=== PATIENT | male | born 1955 | race Two or more races ===

== ENCOUNTER 2017-11-28 16:13 | Inpatient (IN) | payer OTHER ==
[~2017-11-28] VITALS: Ht 180.3 cm; Wt 75.3 kg
[2017-11-29] MEDS ORDERED: PROTONIX20 MG PO (09:03)
== END 2017-12-03 12:05 | disposition home or self-care (01) | DRG 708 ==
LOC: O/R 11-30 06:15 → SURH 11-30 06:15 → CIR.AMB 11-30 06:15 → EDSTATUS 11-30 07:00 → CIR.AMB 11-30 07:00 → SURG 11-30 15:45 → SURH 11-30 15:45 → CIR.AMB 11-30 16:06 → SURH 12-03 12:05
PROVIDERS: Urology
PROC: 07TC0ZZ Resection of Pelvis Lymphatic, Open Approach (ICD-10-PCS; 2017-11-30)
PROC: 0VT00ZZ Resection of Prostate, Open Approach (ICD-10-PCS; principal; 2017-11-30 07:00)
DX: C61 Malignant neoplasm of prostate (principal)

== ENCOUNTER → 2017-12-20 12:13 | Outpatient (CLI) | payer OTHER ==
[~2017-12-20 12:13] MED LIST: PROTONIX20 MG PO
== END | disposition home or self-care (01) ==
LOC: LAB 12:13
DX: N30.00 Acute cystitis without hematuria (principal); R82.79 Other abnormal findings on microbiological examination of urine

== ENCOUNTER 2017-12-20 13:26 | Outpatient (CLI) | payer OTHER | END 2017-12-20 13:40 | disposition home or self-care (01) | LOC: SONOGRAMA 13:26 | DX: R31.29 Other microscopic hematuria (principal) ==

== ENCOUNTER 2018-03-08 10:47 | Outpatient (CLI) | payer OTHER | END 2018-03-08 10:50 | disposition home or self-care (01) | LOC: LAB 10:47 | DX: C61 Malignant neoplasm of prostate (principal); N30.00 Acute cystitis without hematuria ==

== ENCOUNTER 2018-07-19 09:59 | Outpatient (CLI) | payer OTHER ==
[~2018-07-19] VITALS: Ht 152.4 cm; Wt 74.8 kg
== END 2018-07-19 10:15 | disposition home or self-care (01) ==
LOC: OFIC 805 09:59
DX: H90.3 Sensorineural hearing loss, bilateral (principal); H61.23 Impacted cerumen, bilateral; H92.01 Otalgia, right ear; M46.82 Other specified inflammatory spondylopathies, cervical region

== ENCOUNTER 2019-03-06 06:42 | Day surgery (SDC) | payer OTHER ==
[~2019-03-06 06:42] MED LIST changes: +ASPIR 8181 MG PO
[2019-03-06] MEDS ORDERED: TYLENOL ARTHRI650 MG PO (10:55)
[2019-03-06] MEDS ORDERED: MIRALAX17 GM PO (10:55)
[2019-03-06] MEDS ORDERED: NEURONTIN300 MG PO (10:55)
[2019-03-06] MEDS ORDERED: ZOFRAN4 MG PO (10:55)
[2019-03-06] MEDS ORDERED: ULTRAM50 MG PO (10:55)
[2019-03-09] MEDS ORDERED: DUCOLAX (15:44)
== END 2019-03-06 15:35 | disposition home or self-care (01) ==
LOC: CIR.AMB 06:42
DX: K40.90 Unilateral inguinal hernia, without obstruction or gangrene, not specified as recurrent (principal); D17.6 Benign lipomatous neoplasm of spermatic cord

== ENCOUNTER → 2019-03-09 | Emergency (ER) | payer OTHER ==
[~2019-03-09] VITALS: Ht 180.3 cm; Wt 74.8 kg
[~2019-03-09] MED LIST changes: +DUCOLAX; +MIRALAX17 GM PO; +NEURONTIN300 MG PO; +TYLENOL ARTHRI650 MG PO; +ULTRAM50 MG PO; +ZOFRAN4 MG PO
== END | disposition home or self-care (01) ==
LOC: ER 14:49
DX: K29.70 Gastritis, unspecified, without bleeding (principal); R10.13 Epigastric pain

== ENCOUNTER 2019-03-17 11:24 | Emergency (ER) | payer OTHER ==
[~2019-03-17] VITALS: Ht 180.3 cm; Wt 76.7 kg
== END 2019-03-17 14:55 | disposition home or self-care (01) ==
LOC: ER 11:24
DX: R10.11 Right upper quadrant pain (principal)

== ENCOUNTER 2020-12-29 13:27 | Outpatient (CLI) | payer OTHER | END 2020-12-29 13:29 | disposition home or self-care (01) | LOC: SONOGRAMA 13:27 | PROVIDERS: ATTEND Internal Medicine Gastroenterology | DX: R10.84 Generalized abdominal pain (principal) ==

== ENCOUNTER 2020-12-29 15:43 | Outpatient (CLI) | payer OTHER | END 2020-12-29 15:46 | disposition home or self-care (01) | LOC: LAB 15:43 | PROVIDERS: ATTEND Internal Medicine Gastroenterology | DX: R62.59 Other lack of expected normal physiological development in childhood (principal); E03.8 Other specified hypothyroidism; R10.84 Generalized abdominal pain; E78.49 Other hyperlipidemia ==

== ENCOUNTER 2021-11-09 08:28 | Outpatient (CLI) | payer OTHER | END 2021-11-09 08:39 | disposition home or self-care (01) | LOC: LAB 08:28 | PROVIDERS: ATTEND Internal Medicine Cardiovascular Disease | DX: I10 Essential (primary) hypertension (principal); E11.9 Type 2 diabetes mellitus without complications; E03.9 Hypothyroidism, unspecified; E78.2 Mixed hyperlipidemia; N40.0 Benign prostatic hyperplasia without lower urinary tract symptoms; Z12.11 Encounter for screening for malignant neoplasm of colon; E55.9 Vitamin D deficiency, unspecified ==

== ENCOUNTER → 2021-11-10 11:42 | Outpatient (CLI) | payer OTHER | END | disposition home or self-care (01) | LOC: LAB 11:42 | PROVIDERS: ATTEND Internal Medicine Cardiovascular Disease | DX: Z12.11 Encounter for screening for malignant neoplasm of colon (principal) ==

== ENCOUNTER → 2022-07-27 09:05 | Outpatient (CLI) | payer OTHER | END | disposition home or self-care (01) | LOC: LAB 09:05 | PROVIDERS: ATTEND Urology | DX: C61 Malignant neoplasm of prostate (principal) ==

== ENCOUNTER 2024-09-25 12:42 | Outpatient (CLI) | payer OTHER | END 2024-09-25 12:48 | disposition home or self-care (01) | LOC: LAB 12:42 | PROVIDERS: ATTEND Urology | DX: C61 Malignant neoplasm of prostate (principal) ==